=== PATIENT | male | born 1990 | race Caucasian/White ===

== ENCOUNTER 2021-06-03 09:00 | Outpatient (RCR) | payer OTHER, SELFPAY ==
--- NOTE | 2021-03-27 13:25 | W.PM.TMSCONS ---
History of Present Illness General Data Date of Service: 03/27/21 Reason for consult: TMS evaluation referred by Dr. Micheal Fields at the [facility] History of Present Illness THE PATIENT IS A 31-YEAR-OLD SINGLE MALE WITH A HISTORY OF RECURRENT DEPRESSION AND PTSD REFERRED FOR TMS EVALUATION. THE PATIENT HAD A PRIOR SUCCESSFUL TREATMENT WITH TMS AT [facility] THE PATIENT HAD AN EXTENDED TREATMENT SERIES OF 46 TREATMENTS AND HIS PHQ-9 WENT FROM 21 TO 4 . THERE WERE NO SIGNIFICANT ADVERSE EFFECTS NOTED. HIS ROSELINE WENT FROM 12-0. PATIENT HAS A HISTORY OF INTOLERANCE TO MEDICATION INCLUDING SERTRALINE AND MOST RECENTLY TRINTELLIX. HE TENDS TO GET IRRITABLE BOWEL. HE MOST RECENTLY HAS HAD AN EXACERBATION OF MOOD AND INCREASED ANXIETY. HIS MOST RECENT PHQ-9 IS 20. PATIENT ALSO HAS A HISTORY OF PTSD SYMPTOMS HE [facility]. HE HAS FREQUENT NIGHTMARES ALWAYS FEELS ON EDGE DESCRIBES LOW ENERGY POOR CONCENTRATION DEPRESSED MOOD. HE DOES USE INDIC A BEFORE BED. PAST TRIALS OF MODAFINIL AND ADDERALL FOR LOW ENERGY AND ADHD. Past Psychiatric History/Medication Trials: THE PATIENT HAS STRUGGLED WITH DEPRESSION AND ANXIETY FROM YOUNG ADULTHOOD. HE STARTED HAVING DIFFICULTIES WHEN HIS PARENTS AT AGE 16. THERE IS NO HISTORY OF RL. THE PATIENT HAS BEEN ON MULTIPLE MEDICATION TRIALS INCLUDING SERTRALINE, CITALOPRAM, BUPROPION FLACCID OWN, ADDERALL XR, MODAFINIL AND MOST RECENTLY TRINTELLIX. THE PATIENT HAS NOT HAD RECENT PSYCHOTHERAPY HIS NOT HAD FOUND THIS HELPFUL IN THE PAST. [facility] Medical History (Updated 04/09/21 @ 12:43 by Bwoen Melgoza MD) Chronic post-traumatic stress disorder (PTSD) Depression, major, severe recurrence Narrative: HISTORY OF GASTROESOPHAGEAL REFLUX DISORDER HISTORY OF IBS HISTORY OF TINNITUS NO HISTORY OF METALLIC FRAGMENTS ABOVE THE HEAD OR NECK NO PACEMAKER NO CARDIAC HISTORY NO HISTORY OF SEIZURES NO MEDICAL CONTRAINDICATIONS NOTED TO TMS TOLERATED WELL PREVIOUSLY Family History: POSITIVE FAMILY HISTORY OF DEPRESSION Social History: THE PATIENT LIVES ALONE HE MOST RECENTLY WAS WORKING FOR PERIOD OF TIME AT A [employer]. THERE WAS SOME EMPLOYEE DISCORD AND THE PATIENT IS NO LONGER WORKING. PATIENT NEVER NO CHILDREN CURRENTLY NOT WORKING Substance History: REGULAR MARIJUANA USE NO REPORTED ALCOHOL ABUSE OR OTHER SUBSTANCE USE. Trauma History: [facility] SYMPTOMS. Meds/Allergies Meds Narrative: PATIENT CURRENTLY HAS TAPERED OFF OF MEDICATION HAD BEEN TAKING TRINTELLIX HE DOES USE MARIJUANA TINC SURE FOR SLEEP Allergies Allergies Allergy/AdvReac Type Severity Reaction Status Date / Time No Known Allergies Allergy Unverified 04/18/20 19:35 [No Known Allergies*] Mental Status Exam Mental Status Exam Narrative: THE PATIENT IS COOPERATIVE TO THE INTERVIEW SEEN IN TELE HEALTH APPOINTMENT. AGREEABLE TO CONDITIONS OF OF THE EVALUATION. 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 THE PATIENT REPORTS LOW MOOD DIFFICULTY WITH CONCENTRATION ATTENTION AND NORMA. FREQUENT NIGHTMARES NOTED. SPEECH WAS CLEAR GOAL-DIRECTED HIS THINKING WAS LOGICAL REPORTS INCREASED STARTLE DENIES ACTIVE SI no psychosis Assessment & Plan Assessment & Plan (1) Depression, major, severe recurrence: Status: Acute Code(s): F33.2 - Major depressive disorder, recurrent severe without psychotic features (2) Chronic post-traumatic stress disorder (PTSD): Status: Acute Code(s): F43.12 - Post-traumatic stress disorder, chronic Assessment and Plan: Patient had done well in 2019 with the extended course of TMS 46 treatments with marked reduction in both depression and PTSD symptoms. There are no contraindications to TMS. [facility] reviewed prior consultation reviewed patient seen and telehealth appointment. Patient has significant symptoms of clinical depression unable to tolerate medication and history of poor response to medication treatment. Patient meets criteria for retreatment with TMS having had excellent prior response and no medical contraindications. Greater than 50% of the session was spent on counseling and/or coordination of care
--- NOTE | 2021-04-01 22:53 | HO.TMSDAILY2 ---
TMS Daily Progress Note Daily TMS Progress Note Date of Service: 04/01/21 Week #: 1 Treatment #(08-31): 1 PHQ-9 Pre-Treatment (08-28): 20 PHQ-9 Most Recent (08-28): 20 Reviewed: TMS Mapping/Re-mapping completed Verification: I have reviewed the TMS Filler Leaf Cutter Long Note and agree with the contents. The patient remains a candidate to continue TMS treatment per protocol.
--- NOTE | 2021-04-04 17:40 | P.PNPS_ITS ---
TMS Daily Progress Note Daily TMS Progress Note Date of Service: 04/01/21 Week #: 1 Treatment #(08-31): 1 PHQ-9 Pre-Treatment (08-28): 20 PHQ-9 Most Recent (08-28): 20 Reviewed: TMS Mapping/Re-mapping completed (late entry for 04/01/21) Verification: I have reviewed the TMS Cut And Cover Line Worker Note and agree with the contents. The patient remains a candidate to continue TMS treatment per protocol.
--- NOTE | 2021-04-04 17:46 | HO.TMSDAILY2 ---
TMS Daily Progress Note Daily TMS Progress Note Date of Service: 04/03/21 Week #: 1 Treatment #(08-31): 3 PHQ-9 Pre-Treatment (08-28): 20 PHQ-9 Most Recent (08-28): 20 Reviewed: TMS Tech Note Reviewed Verification: I have reviewed the TMS Property Management Accountant Note and agree with the contents. The patient remains a candidate to continue TMS treatment per protocol. mt cont to be adj pt not on medication
--- NOTE | 2021-04-04 17:47 | P.PNPS_ITS ---
TMS Daily Progress Note Daily TMS Progress Note Date of Service: 04/04/21 Week #: 1 Treatment #(08-31): 4 PHQ-9 Pre-Treatment (08-28): 20 PHQ-9 Most Recent (08-28): 20 Reviewed: TMS Tech Note Reviewed Verification: I have reviewed the TMS Oceanology Teacher Note and agree with the contents. The patient remains a candidate to continue TMS treatment per pro tocol. [place] inc
--- NOTE | 2021-04-08 17:42 | P.PNPS_ITS ---
TMS Daily Progress Note Daily TMS Progress Note Date of Service: 04/02/21 Week #: 1 Treatment #(08-31): 2 late entry for tx 2 PHQ-9 Pre-Treatment (08-28): 20 PHQ-9 Most Recent (08-28): 20 Reviewed: TMS Tech Note Reviewed Verification: I have reviewed the TMS Senior Engineer Note and agree with the contents. The patient remains a candidate to continue TMS treatment per protocol. MT bobbi late entry
--- NOTE | 2021-04-08 22:00 | HO.TMSDAILY2 ---
TMS Daily Progress Note Daily TMS Progress Note Date of Service: 04/08/21 Week #: 1 Treatment #(08-31): 5 PHQ-9 Pre-Treatment (08-28): 20 PHQ-9 Most Recent (08-28): 20 Reviewed: TMS Tech Note Reviewed Verification: I have reviewed the TMS Perfect Binder Setter Note and agree with the contents. The patient remains a candidate to continue TMS treatment per protocol.
--- NOTE | 2021-04-09 21:08 | HO.TMSDAILY2 ---
TMS Daily Progress Note Daily TMS Progress Note Date of Service: 04/09/21 Week #: 2 Treatment #(08-31): 6 PHQ-9 Pre-Treatment (08-28): 20 PHQ-9 Most Recent (08-28): 20 Reviewed: TMS Tech Note Reviewed Verification: I have reviewed the TMS Inventory Audit Clerk Note and agree with the contents. The patient remains a candidate to continue TMS treatment per protocol.
--- NOTE | 2021-04-10 17:11 | HO.TMSDAILY2 ---
TMS Daily Progress Note Daily TMS Progress Note Date of Service: 04/10/21 Week #: 2 Treatment #(08-31): 7 PHQ-9 Pre-Treatment (08-28): 20 PHQ-9 Most Recent (08-28): 20 Reviewed: TMS Tech Note Reviewed Verification: I have reviewed the TMS Roll Or Tape Edge Machine Operator Note and agree with the contents. The patient remains a candidate to continue TMS treatment per protocol.
--- NOTE | 2021-04-11 22:43 | HO.TMSDAILY2 ---
TMS Daily Progress Note Daily TMS Progress Note Date of Service: 04/11/21 Week #: 2 Treatment #(08-31): 8 PHQ-9 Pre-Treatment (08-28): 20 PHQ-9 Most Recent (08-28): 20 Reviewed: TMS Tech Note Reviewed Verification: I have reviewed the TMS Planetarium Sky Show Technician Note and agree with the contents. The patient remains a candidate to continue TMS treatment per protocol.
--- NOTE | 2021-04-15 21:49 | HO.TMSDAILY2 ---
TMS Daily Progress Note Daily TMS Progress Note Date of Service: 04/15/21 Week #: 2 Treatment #(08-31): 9 PHQ-9 Pre-Treatment (08-28): 20 PHQ-9 Most Recent (08-28): 20 Reviewed: TMS Tech Note Reviewed Verification: I have reviewed the TMS Finishing Range Operator Note and agree with the contents. The patient remains a candidate to continue TMS treatment per protocol.
--- NOTE | 2021-04-17 20:20 | HO.TMSDAILY2 ---
TMS Daily Progress Note Daily TMS Progress Note Date of Service: 04/16/21 Week #: 2 Treatment #(08-31): 10 PHQ-9 Pre-Treatment (08-28): 20 PHQ-9 Most Recent (08-28): 20 Reviewed: TMS Tech Note Reviewed Verification: I have reviewed the TMS Private Duty Lpn Note and agree with the contents. The patient remains a candidate to continue TMS treatment per protocol.
--- NOTE | 2021-04-17 20:24 | HO.TMSDAILY2 ---
TMS Daily Progress Note Daily TMS Progress Note Date of Service: 04/18/21 Week #: 3 Treatment #(08-31): 11 PHQ-9 Pre-Treatment (08-28): 20 PHQ-9 Most Recent (08-28): 20 Reviewed: TMS Tech Note Reviewed Verification: I have reviewed the TMS Terminal Make Up Operator Note and agree with the contents. The patient remains a candidate to continue TMS treatment per protocol.
--- NOTE | 2021-04-18 20:26 | HO.TMSDAILY2 ---
TMS Daily Progress Note Daily TMS Progress Note Date of Service: 04/18/21 Week #: 3 Treatment #(08-31): 12 PHQ-9 Pre-Treatment (08-28): 20 PHQ-9 Most Recent (08-28): 20 Reviewed: TMS Tech Note Reviewed Verification: I have reviewed the TMS Container Washer Machine Note and agree with the contents. The patient remains a candidate to continue TMS treatment per protocol.
--- NOTE | 2021-04-21 20:48 | HO.TMSDAILY2 ---
TMS Daily Progress Note Daily TMS Progress Note Date of Service: 04/21/21 Week #: 3 Treatment #(08-31): 13 PHQ-9 Pre-Treatment (08-28): 20 PHQ-9 Most Recent (08-28): 20 Reviewed: TMS Tech Note Reviewed Verification: I have reviewed the TMS Paid Search Marketing Analyst Note and agree with the contents. The patient remains a candidate to continue TMS treatment per protocol.
--- NOTE | 2021-04-22 21:30 | P.PNPS_ITS ---
TMS Daily Progress Note Daily TMS Progress Note Date of Service: 04/22/21 Week #: 3 Treatment #(08-31): 14 PHQ-9 Pre-Treatment (08-28): 20 PHQ-9 Most Recent (08-28): 20 Reviewed: TMS Tech Note Reviewed Verification: I have reviewed the TMS Purchasing Manager Note and agree with the contents. The patient remains a candidate to continue TMS treatment per pr otocol.
--- NOTE | 2021-04-23 21:53 | P.PNPS_ITS ---
TMS Daily Progress Note Daily TMS Progress Note Date of Service: 04/23/21 Week #: 3 Treatment #(08-31): 15 PHQ-9 Pre-Treatment (08-28): 20 PHQ-9 Most Recent (08-28): 20 Reviewed: TMS Tech Note Reviewed Verification: I have reviewed the TMS Optical Glass Inspector Note and agree with the contents. The patient remains a candidate to continue TMS treatment per pr otocol.
--- NOTE | 2021-04-24 21:23 | P.PNPS_ITS ---
TMS Daily Progress Note Daily TMS Progress Note Date of Service: 04/24/21 Week #: 4 Treatment #(08-31): 16 PHQ-9 Pre-Treatment (08-28): 20 PHQ-9 Most Recent (08-28): 20 Reviewed: TMS Tech Note Reviewed Verification: I have reviewed the TMS Vocational Psychologist Note and agree with the contents. The patient remains a candidate to continue TMS treatment per pr otocol.
--- NOTE | 2021-04-25 21:28 | P.PNPS_ITS ---
TMS Daily Progress Note Daily TMS Progress Note Date of Service: 04/25/21 Week #: 4 Treatment #(08-31): 17 PHQ-9 Pre-Treatment (08-28): 20 PHQ-9 Most Recent (08-28): 20 Reviewed: TMS Tech Note Reviewed Verification: I have reviewed the TMS Residential Construction Instructor Note and agree with the contents. The patient remains a candidate to continue TMS treatment per pr otocol.
--- NOTE | 2021-04-29 20:27 | HO.TMSDAILY2 ---
TMS Daily Progress Note Daily TMS Progress Note Date of Service: 04/29/21 Week #: 4 Treatment #(08-31): 18 PHQ-9 Pre-Treatment (08-28): 20 PHQ-9 Most Recent (08-28): 20 Reviewed: TMS Tech Note Reviewed Verification: I have reviewed the TMS Oncology Pharmacist Note and agree with the contents. The patient remains a candidate to continue TMS treatment per protocol.
--- NOTE | 2021-04-30 20:29 | P.PNPS_ITS ---
TMS Daily Progress Note Daily TMS Progress Note Date of Service: 04/30/21 Week #: 4 Treatment #(08-31): 19 PHQ-9 Pre-Treatment (08-28): 20 PHQ-9 Most Recent (08-28): 20 Reviewed: TMS Tech Note Reviewed Verification: I have reviewed the TMS Training Project Manager Note and agree with the contents. The patient remains a candidate to continue TMS treatment per pr otocol.
--- NOTE | 2021-05-01 21:25 | P.PNPS_ITS ---
TMS Daily Progress Note Daily TMS Progress Note Date of Service: 05/01/21 Week #: 4 Treatment #(08-31): 20 PHQ-9 Pre-Treatment (08-28): 20 PHQ-9 Most Recent (08-28): 20 Reviewed: TMS Tech Note Reviewed Verification: I have reviewed the TMS Sales Representative Health Insurance Note and agree with the contents. The patient remains a candidate to continue TMS treatment per pr otocol.
--- NOTE | 2021-05-06 21:42 | P.PNPS_ITS ---
TMS Daily Progress Note Daily TMS Progress Note Date of Service: 05/06/21 Week #: 5 Treatment #(08-31): 22 PHQ-9 Pre-Treatment (08-28): 20 PHQ-9 Most Recent (08-28): 20 Reviewed: TMS Tech Note Reviewed Verification: I have reviewed the TMS Adviser Sales Note and agree with the contents. The patient remains a candidate to continue TMS treatment per pr otocol.
--- NOTE | 2021-05-06 21:43 | P.PNPS_ITS ---
TMS Daily Progress Note Daily TMS Progress Note Date of Service: 05/06/21 Week #: 5 Treatment #(08-31): 23 PHQ-9 Pre-Treatment (08-28): 20 PHQ-9 Most Recent (08-28): 20 Reviewed: TMS Tech Note Reviewed Verification: I have reviewed the TMS Quality Improvement Coordinator (Rn) Note and agree with the contents. The patient remains a candidate to continue TMS treatment per pr otocol.
--- NOTE | 2021-05-07 22:15 | P.PNPS_ITS ---
TMS Daily Progress Note Daily TMS Progress Note Date of Service: 05/07/21 Week #: 5 Treatment #(08-31): 24 PHQ-9 Pre-Treatment (08-28): 20 PHQ-9 Most Recent (08-28): 20 Reviewed: TMS Tech Note Reviewed Verification: I have reviewed the TMS Machine Bunch Maker Note and agree with the contents. The patient remains a candidate to continue TMS treatment per p brandan.
--- NOTE | 2021-05-08 22:16 | P.PNPS_ITS ---
TMS Daily Progress Note Daily TMS Progress Note Date of Service: 05/08/21 Week #: 5 Treatment #(08-31): 25 PHQ-9 Pre-Treatment (08-28): 20 PHQ-9 Most Recent (08-28): 20 Reviewed: TMS Tech Note Reviewed Verification: I have reviewed the TMS Processing Talc And Borate Supervisor Note and agree with the contents. The patient remains a candidate to continue TMS treatment per p brandan.
--- NOTE | 2021-05-09 22:31 | P.PNPS_ITS ---
TMS Daily Progress Note Daily TMS Progress Note Date of Service: 05/09/21 Week #: 6 Treatment #(08-31): 26 PHQ-9 Pre-Treatment (08-28): 20 PHQ-9 Most Recent (08-28): 20 Reviewed: TMS Tech Note Reviewed Verification: I have reviewed the TMS Astronaut Mission Specialist Note and agree with the contents. The patient remains a candidate to continue TMS treatment per p brandan.
--- NOTE | 2021-05-13 22:37 | HO.TMSDAILY2 ---
TMS Daily Progress Note Daily TMS Progress Note Date of Service: 05/13/21 Week #: 6 Treatment #(08-31): 27 PHQ-9 Pre-Treatment (08-28): 20 PHQ-9 Most Recent (08-28): 20 Reviewed: TMS Tech Note Reviewed Verification: I have reviewed the TMS Major Account Manager Note and agree with the contents. The patient remains a candidate to continue TMS treatment per protocol.
--- NOTE | 2021-05-15 10:20 | P.PNPS_ITS ---
TMS Daily Progress Note Daily TMS Progress Note Date of Service: 05/15/21 Week #: 6 Treatment #(08-31): 29 PHQ-9 Pre-Treatment (08-28): 20 PHQ-9 Most Recent (08-28): 20 Reviewed: TMS Tech Note Reviewed Verification: I have reviewed the TMS Set Up Mechanic Crown Assembly Machine Note and agree with the contents. The patient remains a candidate to continue TMS treatment per p brandan.
--- NOTE | 2021-05-15 14:49 | HO.TMSDAILY2 ---
TMS Daily Progress Note Daily TMS Progress Note Date of Service: 05/13/21 Week #: 6 Treatment #(08-31): 27 PHQ-9 Pre-Treatment (08-28): 20 PHQ-9 Most Recent (08-28): 20 CGI-I Most Recent: 2 = Much Improved Reviewed: TMS Tech Note Reviewed Verification: I have reviewed the TMS Customer Care Consultant Note and agree with the contents. The patient remains a candidate to continue TMS treatment per protocol.
--- NOTE | 2021-05-16 21:43 | P.PNPS_ITS ---
TMS Daily Progress Note Daily TMS Progress Note Date of Service: 05/16/21 Week #: 6 Treatment #(08-31): 30 PHQ-9 Pre-Treatment (08-28): 20 PHQ-9 Most Recent (08-28): 20 CGI-I Most Recent: 2 = Much Improved Reviewed: TMS Tech Note Reviewed Verification: I have reviewed the TMS Arranger Assembler Note and agree with the contents. The patient remains a candidate to continue TMS treatment per protocol.
--- NOTE | 2021-05-19 17:48 | HO.TMSDAILY2 ---
TMS Daily Progress Note Daily TMS Progress Note Date of Service: 05/19/21 Week #: 6 Treatment #(08-31): 31 PHQ-9 Pre-Treatment (08-28): 20 PHQ-9 Most Recent (08-28): 20 CGI-I Most Recent: 2 = Much Improved Reviewed: TMS Tech Note Reviewed Verification: I have reviewed the TMS Case Assembler Note and agree with the contents. The patient remains a candidate to continue TMS treatment per protocol.
--- NOTE | 2021-05-20 21:25 | P.PNPS_ITS ---
TMS Daily Progress Note Daily TMS Progress Note Date of Service: 05/20/21 Week #: 6 Treatment #(08-31): 32 PHQ-9 Pre-Treatment (08-28): 20 PHQ-9 Most Recent (08-28): 20 CGI-I Most Recent: 2 = Much Improved Reviewed: TMS Tech Note Reviewed Verification: I have reviewed the TMS Claims Attorney Note and agree with the contents. The patient remains a candidate to continue TMS treatment per protocol.
--- NOTE | 2021-05-21 20:35 | HO.TMSDAILY2 ---
TMS Daily Progress Note Daily TMS Progress Note Date of Service: 05/21/21 Week #: 7 Treatment #(08-31): 33 PHQ-9 Pre-Treatment (08-28): 20 PHQ-9 Most Recent (08-28): 20 CGI-I Most Recent: 2 = Much Improved Reviewed: TMS Tech Note Reviewed Verification: I have reviewed the TMS Finishing Range Operator Note and agree with the contents. The patient remains a candidate to continue TMS treatment per protocol. Assessment and Plan (1) Depression, major, severe recurrence: Status: Acute (2) Chronic post-traumatic stress disorder (PTSD): Status: Acute Patient doing well with present treatment course continue present regimen
--- NOTE | 2021-05-27 21:27 | HO.TMSDAILY2 ---
TMS Daily Progress Note Daily TMS Progress Note Date of Service: 05/22/21 Week #: 7 Treatment #(08-31): 34 PHQ-9 Pre-Treatment (08-28): 20 PHQ-9 Most Recent (08-28): 20 CGI-I Most Recent: 2 = Much Improved Reviewed: TMS Tech Note Reviewed Verification: I have reviewed the TMS Circulation Representative Note and agree with the contents. The patient remains a candidate to continue TMS treatment per protocol. Assessment and Plan (1) Depression, major, severe recurrence: Status: Acute (2) Chronic post-traumatic stress disorder (PTSD): Status: Acute Continue TMS patient significantly improved
--- NOTE | 2021-05-27 21:37 | P.PNPS_ITS ---
TMS Daily Progress Note Daily TMS Progress Note Date of Service: 05/26/21 Week #: 8 Treatment #(08-31): 36 PHQ-9 Pre-Treatment (08-28): 20 PHQ-9 Most Recent (08-28): 4 CGI-I Most Recent: 2 = Much Improved Reviewed: TMS Tech Note Reviewed Verification: I have reviewed the TMS Contract Clerk Automobile Note and agree with the contents. The patient remains a candidate to continue TMS treatment per protocol. Assessment and Plan (1) Depression, major, severe recurrence: Status: Acute (2) Chronic post-traumatic stress disorder (PTSD): Status: Acute Continue TMS patient significantly improved
--- NOTE | 2021-05-27 21:41 | HO.TMSDAILY2 ---
TMS Daily Progress Note Daily TMS Progress Note Date of Service: 05/27/21 Week #: 8 Treatment #(08-31): 37 PHQ-9 Pre-Treatment (08-28): 20 PHQ-9 Most Recent (08-28): 4 CGI-I Most Recent: 2 = Much Improved Reviewed: TMS Tech Note Reviewed Verification: I have reviewed the TMS Integrated Specialist Note and agree with the contents. The patient remains a candidate to continue TMS treatment per protocol. Assessment and Plan (1) Depression, major, severe recurrence: Status: Acute (2) Chronic post-traumatic stress disorder (PTSD): Status: Acute Continue TMS patient significantly improved
--- NOTE | 2021-05-28 20:59 | P.PNPS_ITS ---
TMS Daily Progress Note Daily TMS Progress Note Date of Service: 05/29/21 Week #: 8 Treatment #(08-31): 38 PHQ-9 Pre-Treatment (08-28): 20 PHQ-9 Most Recent (08-28): 4 CGI-I Most Recent: 2 = Much Improved Reviewed: TMS Tech Note Reviewed Verification: I have reviewed the TMS Crossword Puzzle Maker Note and agree with the contents. The patient remains a candidate to continue TMS treatment per protocol. Assessment and Plan (1) Depression, major, severe recurrence: Status: Acute (2) Chronic post-traumatic stress disorder (PTSD): Status: Acute Continue TMS patient significantly improved
--- NOTE | 2021-05-29 21:02 | HO.TMSDAILY2 ---
TMS Daily Progress Note Daily TMS Progress Note Date of Service: 05/29/21 Week #: 8 Treatment #(08-31): 39 PHQ-9 Pre-Treatment (08-28): 20 PHQ-9 Most Recent (08-28): 4 CGI-I Most Recent: 2 = Much Improved Reviewed: TMS Tech Note Reviewed Verification: I have reviewed the TMS Steward/Stewardess Wine Note and agree with the contents. The patient remains a candidate to continue TMS treatment per protocol.
--- NOTE | 2021-05-30 18:50 | P.PNPS_ITS ---
TMS Daily Progress Note Daily TMS Progress Note Date of Service: 05/30/21 Week #: 8 Treatment #(08-31): 40 PHQ-9 Pre-Treatment (08-28): 20 PHQ-9 Most Recent (08-28): 4 CGI-I Most Recent: 2 = Much Improved Reviewed: TMS Tech Note Reviewed Verification: I have reviewed the TMS Offset Lithographic Press Setter Note and agree with the contents. The patient remains a candidate to continue TMS treatment per protocol. Assessment and Plan (1) Depression, major, severe recurrence: Status: Acute (2) Chronic post-traumatic stress disorder (PTSD): Status: Acute much improved continue tx plan
--- NOTE | 2021-06-02 21:06 | HO.TMSDAILY2 ---
TMS Daily Progress Note Daily TMS Progress Note Date of Service: 06/02/21 Week #: 9 Treatment #(08-31): 41 PHQ-9 Pre-Treatment (08-28): 20 PHQ-9 Most Recent (08-28): 4 CGI-I Most Recent: 2 = Much Improved Reviewed: TMS Tech Note Reviewed Verification: I have reviewed the TMS Automobiles Salesperson Note and agree with the contents. The patient remains a candidate to continue TMS treatment per protocol. Assessment and Plan (1) Depression, major, severe recurrence: Status: Acute (2) Chronic post-traumatic stress disorder (PTSD): Status: Acute much improved continue tx plan
--- NOTE | 2021-06-03 21:23 | HO.TMSDAILY2 ---
TMS Daily Progress Note Daily TMS Progress Note Date of Service: 06/03/21 Week #: 8 Treatment #(08-31): 42 PHQ-9 Pre-Treatment (08-28): 20 PHQ-9 Most Recent (08-28): 4 CGI-I Most Recent: 2 = Much Improved Reviewed: TMS Tech Note Reviewed Verification: I have reviewed the TMS Pest Control Specialist Note and agree with the contents. The patient remains a candidate to continue TMS treatment per protocol. pt has done quite well used prior protocal returns to the vt Assessment and Plan (1) Depression, major, severe recurrence: Status: Acute (2) Chronic post-traumatic stress disorder (PTSD): Status: Acute much improved stable for d/c f/u at vt outpt
== END 2021-06-04 10:21 | disposition home or self-care (01) ==
LOC: HO.PTMS 09:00
PROVIDERS: Visit Provider Psychiatry & Neurology Psychiatry
DX: F33.2 Major depressive disorder, recurrent severe without psychotic features (principal); F43.12 Post-traumatic stress disorder, chronic
CPT/HCPCS: 90867; 90868